=== PATIENT | male | born 1945 | race Caucasian/White ===

== ENCOUNTER 2021-02-14 18:26 | Emergency (ER) | payer OTHER, SELFPAY ==
[2021-02-14 18:27] VITALS: BP 150/74; PULSE 68; RESP 17; O2SAT 96
[2021-02-14 18:28] VITALS: BP 150/74; PULSE 68; RESP 18; TEMP 36.7; O2SAT 96; BMI 44.8
--- NOTE | 2021-02-14 19:10 | EKG12_ITS ---
Test Reason : DIZZYNESS Blood Pressure : / mmHG Vent. Rate : 067 BPM Atrial Rate : 067 BPM P-R Int : 182 ms QRS Dur : 104 ms QT Int : 428 ms P-R-T Axes : 000 016 005 degrees QTc Int : 452 ms Sinus rhythm with Premature atrial complexes Inferior infarct , age undetermined Abnormal ECG Confirmed by MARIXA FRAGA, VIDA ([id number]), rewrite editor KEE STALLWORTH ([id number]) on 02/17/2021 8:53:03 AM Referred By: TENZIN Confirmed By:VIDA CALVIN MD
[2021-02-14 19:22] LABS: Absolute Neutrophil Count 5.5 X10^3/uL (2.0-7.7); Basophil# 0.04 X10^3/uL; Basophil% 0.6 % (0-1); Eosinophils% 1.4 % (0-5); Hematocrit 39.9 % (40-54); Hemoglobin 12.4 g/dL (13.0-16.5); Lymphocyte % 13.9 % (19-41); Mean Corp Hgb Conc 31.1 g/dL (32-36); Mean Corpuscular Hgb 26.4 pg (27.0-32.0); Mean Corpuscular Volume 84.9 fL (80-94); Mean Platelet Vol. 9.9 fl (6.2-12.0); Monocyte# 0.53 X10^3/uL; Monocyte% 7.4 % (0-10); NRBC Flagged by Analyzer 0 % (0-5); Neutrophil # 5.49 X10^3/uL (2.7-7.7); Neutrophil % 76.1 % (47-70); Platelet Count 174 K/mm3 (150-450); RBC Distribution Width CV 14.7 % (11.6-14.6); RBC Distribution Width SD 45.4 fl (35.1-43.9); White Blood Count 7.2 K/mm3 (4.4-11.0)
[2021-02-14 19:36] LABS: Anion Gap 10 (5-15); BUN 31 mg/dL (7-18); Calcium,Total 9.1 mg/dL (8.5-10.1); Chloride 101 mmol/L (98-107); Creatinine, Serum 1.41 mg/dL (0.70-1.30); EST Glomerular Filtration Rate 52 mL/min (>60); Est Glom Filt Rate - Afr Amer 63 mL/min (>60); Estimated Creatinine Clearance 46.02 ml/min; Glucose 272 mg/dL (74-106); Potassium 4.9 mmol/L (3.5-5.1); Sodium Level 136 mmol/L (136-145); Troponin-I HS 20 pg/mL (3.0-78.0)
--- NOTE | 2021-02-14 19:37 | EX.ED.DYSGE1 ---
HPI History of Present Illness Chief Complaint: General Illness Informant: patient Narrative Narrative: 75-year-old male presenting with lightheadedness. Patient states he did not eat enough today and did not drink enough fluids. He states that he was seated and started to become lightheaded. He denies vertigo. Denies headache. Denies chest pain or shortness of breath. He did not pass out. He states he now feels improved. Recent Illness/Hospitalization: No PFSH PFSH Medical History (Updated 02/14/21 @ 21:[address] Carri Ellsworth MD) Anxiety Bipolar disorder Chronic pain Depression Diabetes GERD (gastroesophageal reflux disease) Hypertension Hypothyroidism ICD (implantable cardioverter-defibrillator) in place Myocardial infarct Non-smoker Pacemaker Rheumatoid arthritis Rotator cuff arthropathy of both shoulders Allergy/AdvReac Type Severity Reaction Status Date / Time No Known Allergies Allergy Verified 02/14/21 18:37 Surgical History (Updated 02/14/21 @ 18:48 by Amee Finley) History of appendectomy History of total right hip replacement Hx of CABG Social History Smoking Status: Never smoker ROS ROS ED Constitutional Constitutional ED: Denies fever(s) Eyes Eyes: Denies change in vision ENT ENT ED: Denies rhinorrhea or sore throat Cardiovascular Cardiovascular: Denies chest pain or palpitations Respiratory/Chest Respiratory/Chest: Denies cough or dyspnea Gastrointestinal Gastrointestinal: Denies abdominal pain, diarrhea, nausea or vomiting Genitourinary Genitourinary ED: Denies dysuria Musculoskeletal Musculoskeletal: Denies myalgias Integumentary Denies rash Neurologic Neurologic: Denies headache(s) Psychiatric Psychiatric: Denies suicidal thoughts EXAM Physical Exam Const Vital Signs: 02/14/21 18:27 02/14/21 18:28 02/14/21 18:48 Temperature 98.1 F Temperature Source Oral Pulse Rate 68 68 Pulse Rate [Lying] Pulse Rate [Sitting] Pulse Rate [Standing] Respiratory Rate 17 18 Respiratory Effort Normal Non-Labored Respiratory Pattern Normal Blood Pressure 150/74 H 150/74 H Blood Pressure [Lying] Blood Pressure [Sitting] Blood Pressure [Standing] Blood Pressure Mean 99 99 Blood Pressure Mean [Lying] Blood Pressure Mean [Sitting] Blood Pressure Mean [Standing] Pulse Ox 96 96 Oxygen Delivery Method Room Air Room Air 02/14/21 19:52 02/14/21 21:20 02/14/21 22:21 Temperature Temperature Source Pulse Rate 66 69 Pulse Rate [Lying] 64 Pulse Rate [Sitting] 64 Pulse Rate [Standing] 83 Respiratory Rate 18 20 H Respiratory Effort Respiratory Pattern Blood Pressure 147/91 H 184/91 H Blood Pressure [Lying] 159/80 H Blood Pressure [Sitting] 154/77 H Blood Pressure [Standing] 170/94 H Blood Pressure Mean 109 Blood Pressure Mean [Lying] 106 Blood Pressure Mean [Sitting] 102 Blood Pressure Mean [Standing] 119 Pulse Ox 95 96 Oxygen Delivery Method Room Air Positive well nourished and well developed General Appearance ED: well developed HEENT Reports normocephalic and head/scalp atraumatic Eyes PERRL and EOMs intact bilaterally Neck supple General: Negative for tenderness Chest Wall inspection of chest normal Resp normal respiratory effort and clear to auscultation bilaterally Cardio regular rate and regular rhythm GI non-tender and non-distended Palpation: soft; Negative for guarding or rebound tenderness present no CVA tenderness Extremity normal to inspection Neuro oriented x3 Sensorium / Orientation: alert Psych mental status grossly normal Skin no rashes or lesions noted MDM MDM MDM Narrative Medical decision making narrative: EKG is sinus rhythm rate of 67 with no acute ischemic changes. CBC unremarkable. Chemistry panel is normal except BUN 31, creatinine 1.41, glucose 272. Troponin is negative. Patient was given IV fluids. Orthostatics are negative. He continues to feel improved and is requesting discharge home. Advised to follow-up with primary care physician. Advised return to ED for worsening complaints. Lab Data Attestation: I reviewed the patient's lab results. Labs: Laboratory Results - last 24 hr 02/14/21 02/14/21 18:00 18:00 WBC 7.2 RBC 4.70 Hgb 12.4 L Hct 39.9 L MCV 84.9 MCH 26.4 L MCHC 31.1 L RDW Std Deviation 45.4 H RDW Coeff of Arpita 14.7 H Plt Count 174 MPV 9.9 Immature Gran % (Auto) 0.600 Neut % (Auto) 76.1 H Lymph % (Auto) 13.9 L Addison % (Auto) 7.4 Eos % (Auto) 1.4 Baso % (Auto) 0.6 Absolute Neuts (auto) 5.5 Absolute Lymphs (auto) 1.00 Nucleated RBC % 0 Sodium 136 Potassium 4.9 Chloride 101 Carbon Dioxide 25.0 Anion Gap 10 BUN 31 H Creatinine 1.41 H Estim Creat Clear Calc 46.02 Est GFR (MDRD) Af Amer 63 Est GFR (MDRD) Non-Af 52 L BUN/Creatinine Ratio 22.0 H Glucose 272 H Calcium 9.1 Troponin I High Sens 20 Discharge Plan Triage Chief Complaint: General Illness ED Provider: Carri Ellsworth Dx/Rx/DC Orders Clinical Impression: Light-headedness Instructions: ED Dizziness, Uncertain Cause Primary Care Provider: Hospital,CT Referrals: Hospital,CT [Primary Care Provider] - Disposition Disposition: Home, Self Care Discharge Date/Time: 02/14/21 22:21
[2021-02-14 19:52] VITALS: BP 154/77; BP 159/80; BP 170/94; PULSE 64; PULSE 83
[2021-02-14 21:20] VITALS: BP 147/91; PULSE 66; RESP 18; O2SAT 95
[2021-02-14 22:21] VITALS: BP 184/91; PULSE 69; RESP 20; O2SAT 96
== END 2021-02-14 22:21 | disposition home or self-care (01) ==
PROVIDERS: Emergency Provider Emergency Medicine
DX: R42 Dizziness and giddiness (principal); E11.9 Type 2 diabetes mellitus without complications; K21.9 Gastro-esophageal reflux disease without esophagitis; I10 Essential (primary) hypertension; M06.9 Rheumatoid arthritis, unspecified
CPT/HCPCS: 80048; 84484; 85025; 93005; 96360; 96361; 99285; J7040

== ENCOUNTER 2021-10-08 05:00 | Outpatient (REF) | payer SELFPAY ==
[2021-10-08 08:27] LABS: Hemoglobin 10.3 g/dL (13.0-16.5); Mean Corp Hgb Conc 31.2 g/dL (32-36); Mean Corpuscular Volume 86.4 fL (80-94); Mean Platelet Vol. 9.6 fl (6.2-12.0); Platelet Count 237 K/mm3 (150-450); RBC Distribution Width CV 14.6 % (11.6-14.6); Red Blood Count 3.82 M/mm3 (4.6-6.2); White Blood Count 6.8 K/mm3 (4.4-11.0)
[2021-10-08 08:41] LABS: Vitamin D,25 Hydroxy 25.4 ng/mL
[2021-10-08 08:52] LABS: Hemoglobin A1c 7.7 % (3.8-5.6)
[2021-10-08 09:01] LABS: ALB/GLOB Ratio 1.1 RATIO (0.9-2.4); AST(SGOT) 22 U/L (15-37); Alanine Aminotransfer ALT/SGPT 53 U/L (16-61); Albumin, Serum 3.5 g/dL (3.2-5.0); Alkaline Phosphatase 69 U/L (45-117); Anion Gap 9 (5-15); BUN 33 mg/dL (7-18); Calcium,Total 8.9 mg/dL (8.5-10.1); Chloride 106 mmol/L (98-107); Cholesterol 163 mg/dL (200); Creatinine, Serum 1.32 mg/dL (0.70-1.30); EST Glomerular Filtration Rate 56 mL/min (>60); Est Glom Filt Rate - Afr Amer 68 mL/min (>60); Globulin 3.1 g/dL (2.2-4.2); Glucose 140 mg/dL (74-106); High Density Lipoprotein 42 mg/dL; Potassium 4.3 mmol/L (3.5-5.1); Protein, Total 6.6 g/dL (6.4-8.2); Sodium Level 138 mmol/L (136-145); Thyroid Stim Hormone (TSH) 5.15 uIU/mL (0.358-3.74); Triglycerides 146 mg/dL; Very Low Density Lipoprotein 29 mg/dL (5-40)
== END 2021-10-08 23:59 | disposition home or self-care (01) ==
LOC: OLS.ACW100 05:00
PROVIDERS: Referring Provider Family Medicine; Visit Provider Family Medicine
DX: M79.89 Other specified soft tissue disorders (principal); E66.01 Morbid (severe) obesity due to excess calories; I21.9 Acute myocardial infarction, unspecified; M25.462 Effusion, left knee; E61.1 Iron deficiency; E78.5 Hyperlipidemia, unspecified
CPT/HCPCS: 36415; 80053; 80061; 82306; 83036; 84443; 85027